=== PATIENT | male | born 1985 | race Caucasian/White ===

== ENCOUNTER 2017-04-09 06:11 | Emergency (ER) | payer SELFPAY ==
[~2017-04-09] VITALS: Ht 177.8 cm; Wt 65.9 kg
[2017-04-09] MEDS ORDERED: LIDODERM 5% P1 PATCH TD (09:49)
[2017-04-09] MEDS ORDERED: FLEXERIL10 MG PO (09:49)
[2017-04-09] MEDS ORDERED: NAPROSYN500 MG PO (09:49)
[2017-04-09] MEDS ORDERED: TRAMADOL HCL50 MG PO (09:49)
[2017-04-09] MEDS ORDERED: COLACE100 MG PO (09:52)
[2017-04-09 10:08] VITALS: BP 127/55
== END 2017-04-09 10:09 | disposition home or self-care (01) ==
LOC: EME 06:11
DX: S29.012A Strain of muscle and tendon of back wall of thorax, initial encounter (principal); X50.1XXA Overexertion from prolonged static or awkward postures, initial encounter; Y99.0 Civilian activity done for income or pay; F17.200 Nicotine dependence, unspecified, uncomplicated; Z71.6 Tobacco abuse counseling
CPT/HCPCS: 99281; 99283; J1885